=== PATIENT | female | born 2000 | race Caucasian/White ===

== ENCOUNTER 2021-02-02 09:21 | Emergency (ER) | payer OTHER ==
--- NOTE | 2021-02-02 09:50 | EDM.PDOC ---
ED HPI GENERAL MEDICAL PROBLEM - General Chief Complaint: Upper Extremity Injury/Pain Stated Complaint: L SHOULDER INJURY Time Seen by Provider: 02/02/21 09:23 - History of Present Illness INITIAL COMMENTS - FREE TEXT/NARRATIVE: History of present illness: [] Patient has pain in the left shoulder for 2 weeks. It feels like it was injured. 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 The pain is an ache in her left shoulder. It is 2 out of 10 in severity at rest and gets moderate markedly worse when she uses the shoulder. Pain is worse with range of motion. Its gradual crescendo but constant since onset. There are no associated symptoms. Review of systems: As per history of present illness and below otherwise all systems reviewed and negative. Past medical history: As per history of present illness and as reviewed below otherwise noncontributory. Surgical history: As per history of present illness and as reviewed below otherwise n oncontributory. Social history: No reported history of drug or alcohol abuse. Family history: As per history of present illness and as reviewed below otherwise noncontributory. Physical exam: Constitutional - well developed, well-nourished and in no acute distress HEENT - normocephalic, no evidence of trauma - external nose and mouth normal - no mass in neck and no JVD - mucosae moist EYES - full EOM, PERRL, no icterus - no evidence of inflammation, injection, or drainage Respiratory - no respiratory distress, equal bilateral expansion Circulatory-digits warm and pink in the left upper extremity. Radial pulse strong. Capillary refill normal. Musculoskeletal minimal tenderness diffusely. Pain increased with abduction of the shoulder. No gross deformity of long bones or joints - no tenderness, swelling or edema Neurologic -median ulnar and radial sensory motor intact in the left upper extremity alert and oriented times four - CN II-XII grossly intact - motor sensory and coordination symmetrically normal Psychiatric - appropriate mood and affect with normal thought content Hematologic - No petechiae or purpura - mucosa appropriate color and sclera not pale - normal nail bed color and refill Integument - no rash or evidence of trauma - normal turgor Diagnostics: [] Therapeutics: [] Impression: [] Plan: [] Definitive disposition and diagnosis as appropriate pending reevaluation and review of above. Left Shoulder Pain Score (Numeric/FACES): 2 - Related Data Allergies Allergy/AdvReac Type Severity Reaction Status Date / Time strawberry Allergy Hives Verified 02/02/21 09:44 Past Medical History Respiratory History: Reports: Asthma - Infectious Disease History Infectious Disease History: Reports: None - Past Surgical History HEENT Surgical History: Reports: Tonsillectomy Social & Family History - Family History Family Medical History: No Pertinent Family History Review of Systems - Review of Systems Review Of Systems: Comprehensive ROS is negative, except as noted in HPI. ED EXAM, GENERAL - Physical Exam Exam: See Below Free Text/Narrative:: My physical exam is in the HPI Course - Vital Signs Last Recorded V/S: Last Vital Signs Temp 36.1 C 02/02/21 09:42 Pulse 84 02/02/21 09:42 Resp 16 02/02/21 09:42 BP 109/77 02/02/21 09:42 Pulse Ox 97 02/02/21 09:42 - Orders/Labs/Meds Orders: Active Orders 24 hr Category Date Time Status Shoulder Comp Lt [CR] Stat Exams 02/02/21 09:45 Taken Departure - Departure Time of Disposition: 10:21 Disposition: Home, Self-Care 01 Condition: Good Clinical Impression: Left shoulder strain - Discharge Information Instructions: Muscle Strain, [id number] Referrals: PCP,None [Primary Care Provider] - Forms: ED Department Discharge Additional Instructions: Gently exercise range of motion. Apply heat for 15 minutes whenever it gets worse. Take [id number] anti-inflammatory medicine such as ibuprofen or naproxen. Follow-up orthopedic clinic or your primary doctor if the pain continues or if you have limited motion. If you have difficulty with some of the strength building and range of motion an MRI might be indicated in the future. [facility] - Orthopedic Clinic Professional Building [address] [place], [address] [place] [address] [facility] [address], [place] [address] [address] The following information is given to patients seen in the emergency department who are being discharged to home. This information is to outline your options for follow-up care. We provide all patients seen in our emergency department with a follow-up referral. The need for follow-up, as well as the timing and circumstances, are variable depending upon the specifics of your emergency department visit. If you don't have a primary care physician on staff, we will provide you with a referral. We always advise you to contact your personal physician following an emergency department visit to inform them of the circumstance of the visit and for follow-up with them and/or the need for any referrals to a consulting specialist. The emergency department will also refer you to a specialist when appropriate. This referral assures that you have the opportunity for follow-up care with a specialist. All of these measure are taken in an effort to provide you with optimal care, which includes your follow-up. Under all circumstances we always encourage you to contact your private physician who remains a resource for coordinating your care. When calling for follow-up care, please make the office aware that this follow-up is from your recent emergency room visit. If for any reason you are refused follow-up, please contact the [facility] Department at and asked to speak to the emergency department charge nurse. Sepsis Event Note (ED) - Evaluation Sepsis Screening Result: No Definite Risk - Focused Exam Vital Signs: Vital Signs Temp Pulse Resp BP Pulse Ox 02/02/21 09:42 36.1 C 84 16 109/77 97 - My Orders Last 24 Hours: My Active Orders 02/02/21 09:45 Shoulder Comp Lt [CR] Stat - Assessment/Plan Last 24 Hours: My Active Orders 02/02/21 09:45 Shoulder Comp Lt [CR] Stat
--- NOTE | 2021-02-02 10:24 | CR ---
Indication: Left shoulder pain. Technique: Left shoulder 3 views. Comparison: None. Findings: Bones: Alignment is normal. No fractures or bone lesions. Joint spaces: Unremarkable. Soft tissues: Unremarkable. Impression: Unremarkable left shoulder. No specific finding to explain pain. Dictated by Willi Savage MD @ 02/02/2021 10:22:51 AM (Electronically Signed)
== END 2021-02-02 10:21 | disposition home or self-care (01) ==
LOC: MW.ED 09:21
DX: S46.912A Strain of unspecified muscle, fascia and tendon at shoulder and upper arm level, left arm, initial encounter (principal); J45.909 Unspecified asthma, uncomplicated; Z91.018 Allergy to other foods; X58.XXXA Exposure to other specified factors, initial encounter
CPT/HCPCS: 73030-26-LT; 73030-LT; 99283-25

== ENCOUNTER 2023-01-18 18:59 | Emergency (ER) | payer OTHER ==
[2023-01-18] MEDS ORDERED: Diphtheria,Pertussis(Acell),Tetanus Vaccine 0.5 ML Syringe IM ONE (20:15)
[2023-01-18] MEDS ORDERED: Lidocaine 1% with EPINEPHrine 1:100,000 20 ML MDV INJECT ONE (20:15)
== END 2023-01-18 20:30 | disposition home or self-care (01) ==
LOC: MW.ED 18:59
DX: S61.412A Laceration without foreign body of left hand, initial encounter (principal); J45.909 Unspecified asthma, uncomplicated; Z91.018 Allergy to other foods; Z23 Encounter for immunization; W26.8XXA Contact with other sharp object(s), not elsewhere classified, initial encounter
CPT/HCPCS: 12001; 90471; 90715; 99282-25; 99283; J3490

== ENCOUNTER 2023-01-31 12:04 | Emergency (ER) | payer BC, OTHER | END 2023-01-31 13:22 | disposition home or self-care (01) | LOC: MW.ED 12:04 | DX: J04.0 Acute laryngitis (principal); J45.909 Unspecified asthma, uncomplicated; Z91.018 Allergy to other foods | CPT/HCPCS: 87651-QW; 99283 ==